=== PATIENT | male | born 1970 | race Caucasian/White ===

== ENCOUNTER → 2018-11-19 07:47 | Outpatient (CLI) | payer OTHER | END | disposition home or self-care (01) | LOC: D.CT 07:47 | PROVIDERS: ATTEND Surgery | DX: R10.13 Epigastric pain (principal); R11.2 Nausea with vomiting, unspecified ==

== ENCOUNTER → 2018-12-18 08:11 | Outpatient (CLI) | payer OTHER | END | disposition home or self-care (01) | LOC: D.NM 08:11 | PROVIDERS: ATTEND Surgery | DX: R10.13 Epigastric pain (principal) ==

== ENCOUNTER 2019-01-08 05:38 | Day surgery (SDC) | payer OTHER ==
[~2019-01-08] VITALS: Ht 172.7 cm; Wt 79.1 kg
[2019-01-08 06:34] VITALS: BP 134/76; Ht 172.7 cm; Wt 79.1 kg
[2019-01-08 06:57] LABS: BASOPHILS 0.7 % (0-2); EOSINOPHILS 5.6 % (0-7); HEMATOCRIT 44.7 % (42.0-54.0); HEMOGLOBIN 15.2 g/dL (13.5-17.5); IMMATURE GRANULOCYTES 0.4 % (0-5); LYMPHOCYTES 24.7 % (15-50); MCH 29.9 pg (26.0-34.0); MCV 87.8 fL (80.0-100.0); MEAN PLATELET VOLUME 9.5 fL (7.4-10.4); NEUTROPHILS 58.6 % (40-80); PLATELET COUNT 255 10x3/uL (130-400); RBC 5.09 10x6/uL (4.20-6.10); RDW 13.1 % (11.5-14.5); WBC 7.3 10x3/uL (4.8-10.8)
[2019-01-08] MEDS ORDERED: OMEPRAZOLE20 M1 PO (08:25)
--- NOTE | 2019-01-08 09:52 | NUR ---
0845-RECD TO ROOM POST EGD AND MANOMETRY 0850-FULL LIQUIDS SERVED 0910-IV D/C, VOIDS AND DRESSED 09-D/C INSTRUCTIONS REVIEWED 924-D/C HOME WITH , AMBULATORY PER REQUEST.
--- NOTE | 2019-01-09 14:40 | OP ---
PATIENT NAME: BETTIE GODWIN MEDICAL RECORD: [id number] :74 LOCATION:D.OPS ADMISSION DATE: SURGEON: ILAN OFRD MD DATE OF OPERATION: 01/08/2019 PREOPERATIVE DIAGNOSES: 1. Epigastric pain. 2. Dysphagia. 3. Cardiac arrhythmia. POSTOPERATIVE DIAGNOSES: 1. Epigastric pain. 2. Dysphagia. 3. Cardiac arrhythmia. PROCEDURES: 1. EGD with biopsy. 2. Esophageal manometry catheter placement. SURGEON: Ilan Ford MD REPORT OF PROCEDURE: An Olympus endoscope was advanced through the mouth and the esophagus and into the stomach. We passed through the stomach into the second portion of the duodenum. There was no sign of any inflammatory changes, ulcerations, or masses. As we pulled back the scope, a biopsy was taken at the antrum of the stomach where was some mild evidence of gastritis. I saw no evidence of masses, polyps, ulcerations throughout the stomach. Retroflexed view showed no sign of a hiatal hernia. As we pulled the scope back, we could see that the GE junction was 38 cm from the teeth. There were some inflammatory changes present at the GE junction consistent with reflux esophagitis. There were some deep ulcerations noted that were friable and having some bleeding from passage of the scope. We took a biopsy of this area. We then removed the insufflation from the stomach. As we pulled back the scope, we saw no evidence of any masses, ulcerations, or strictures of the esophagus. At this point, the scope was completely removed. A manometry probe was then inserted through the naris and down through the esophagus into the stomach. The endoscope was advanced back down through the mouth and esophagus to assure that the probe was in good position and it was noted to be passing through the GE junction. At this point, the scope was removed. COMPLICATIONS: None. CONDITION: Stable. ANESTHESIA: TIVA BLOOD LOSS: Minimal. TRANSINT:[id number] Voice Confirmation ID: [id number] DOCUMENT ID: [id number] OPERATIVE REPORT [id number] TATOBETTIE SOSA ILAN FORD MD at 1440 CC: [id number] DICTATION DATE: 01/08/19 08 SILK WINDING MACHINE OPERATOR: 01/08/19 0946 [facility] 01/08/19 [facility] [address] [place] [address]
== END 2019-01-08 09:25 | disposition home or self-care (01) ==
LOC: D.OPS 05:38
PROVIDERS: Anesthesiology; ATTEND Surgery
DX: K29.70 Gastritis, unspecified, without bleeding (principal); K22.11 Ulcer of esophagus with bleeding; I49.9 Cardiac arrhythmia, unspecified; Z01.812 Encounter for preprocedural laboratory examination

== ENCOUNTER → 2019-07-09 10:44 | Outpatient (CLI) | payer OTHER ==
[2019-01-08 06:34] VITALS: BMI 26.5
[~2019-07-09 10:44] MED LIST: OMEPRAZOLE20 M1 PO
--- NOTE | 2019-07-11 12:59 | EC ---
PATIENT:BETTIE GODWIN DATE OF SERVICE: 07/09/19 SEX: M MEDICAL RECORD: [id number] DATE OF : 74 LOCATION:D.[facility] AGE OF PATIENT: 49 ADMISSION DATE: 07/09/19 REFERRING PHYSICIAN: INTERPRETING PHYSICIAN: EDDY KRAUS MD ECHOCARDIOGRAM REPORT ECHO CHARGES 4 ECHO COMPLETE Date: 07/09/19 CLINICAL DIAGNOSIS: PVC'S H/O HTN/PACEMAKER PLACEMENT ECHOCARDIOGRAPHIC MEASUREMENTS (adult normal given) AC root (d.<3.7cm) 3.8 cm LV Septum d (<1.2 cm> 1.1 cm Valve Excursion 2.5 cm LV Septum (systole) 1.5 cm Left Atria (s.<4.0cm> 4.0 cm LVPW d(<1.2cm) 1.1 cm RV (d.<2.3cm) 2.9 cm LVPW (sytole) 1.4 cm LV diastole(<5.6CM) 6.5 cm MV E-F(>70mm/sec) cm LV systole 4.6 cm LVOT Diameter 2.2 cm MV exc.(>10mm) cm Est.ejection fraction (50-75%) % DOPPLER: LVIT cm/sec A 41.0 cm/sec E 71.0 cm/sec LA cm/sec RVSP 37.0 mmHg LVOT 79.0 cm/sec AOP1/2T m/s Asc. Ao 101 cm/sec RVOT 39.0 cm/sec RA cm/sec PA 67.0 cm/sec AV Gradient Peak 4.1 mmHg AV Mean 2.4 mmHg AV Area 3.3 cm MV Gradient Peak 2.2 mmHg MV Mean 0.79 mmHg MV Area cm COMMENTS: OP - [employer]: 1 [place] Plugger: 3 Dr. Garvin TAPE# PACS Pericardial Effusion N DATE OF SERVICE: Adequate 2-D, Color-Flow, Spectral Doppler, and M-mode No LVH. LV internal dimensions are normal. Wall motion is normal. EF is greater than or equal to 55%. Aortic valve is tricuspid. No evidence of stenosis by Doppler interrogation. Left atrium is normal at 4.0 cm. Mitral valve shows no prolapse. Mild plus MR. Right sided chambers are grossly normal Moderate TR. ECHOCARDIOGRAM REPORT [id number] BETTIE GODWIN TRANSINT:[id number] Voice Confirmation ID: [id number] DOCUMENT ID: [id number] EDDY KRAUS MD at 1259 CC: [id number] DICTATION DATE: 07/10/19 144 VEGETABLE LOADER MACHINE OPERATOR: 07/10/19 2315 DEP CLI 07/09/19 [place] [id number] [place] [id number]
== END | disposition home or self-care (01) ==
LOC: D.HCCECHO 10:44
PROVIDERS: ATTEND Internal Medicine Interventional Cardiology
DX: I08.1 Rheumatic disorders of both mitral and tricuspid valves (principal)

== ENCOUNTER 2020-02-27 15:48 | Inpatient (IN) | payer OTHER ==
[~2020-02-27] VITALS: Ht 172.7 cm; Wt 79.6 kg
--- NOTE | ~2020-02-27 | CN ---
PATIENT NAME:BETTIE GODWIN MEDICAL RECORD: [id number] : 74 LOCATION:[facility] D.2122 ADMIT DATE: 02/27/20 ACCOUNT: [id number] CONSULTING PHYSICIAN: EDDY KRAUS MD REFERRING PHYSICIAN: EDDY SOLITARIO MD DATE OF CONSULTATION: 02/28/2020 HISTORY OF PRESENT ILLNESS: A 49-year-old gentleman with no known history of coronary artery disease, has a history of cardiac arrhythmias in the past, had a permanent pacemaker placed back in 2008 at another facility, admitted with redness, erythema over the pacemaker site. He did have a back injection approximately 3 weeks ago. No dental work. No other procedures. Symptoms became acutely, no systemic symptoms, fever, chills, etc. We are asked to see her concerning her cardiovascular status. PAST MEDICAL HISTORY: Includes; 1. History of cardiac arrhythmia status post pacemaker placement. 2. Gastroesophageal reflux disease. ALLERGIES: None known. MEDICATION: Omeprazole 20 mg p.o. every day. SOCIAL HISTORY: Nonsmoker, nondrinker. Easily takes care of all his ADLs. REVIEW OF SYSTEMS: The patient reports easy bruising but reports no swollen glands. The patient reports no fever, no night sweats, no significant weight gain, no significant weight loss. No significant exercise tolerance. The patient reports no dry eyes, no irritation, no vision change. Patient reports no difficulty hearing and no ear pain. Patient reports no frequent nose bleeds or nose and sinus problems. Patient reports on arm pain on exertion. No shortness of breath while lying down. No history of heart murmur. Patient reports no cough, no wheezing or coughing up blood. Patient reports no abdominal pain, no vomiting. Normal appetite. No diarrhea and not vomiting blood. No nausea and no constipation. Patient reports no incontinence. No difficulty urinating. No hematuria. No increased frequency. Patient reports no muscle aches. No weakness, no arthralgias, no back pain. No swelling of the extremities. Patient reports no abnormal mole, no jaundice, no rashes. Reports no loss of consciousness. No weakness and no numbness. No seizures, dizziness, or headaches. The patient reports no depression, no sleep disturbance, feeling safe in a relationship and no alcohol abuse. Patient reports on fatigue. Reports no runny nose or sinus pressure. No itching, no hives, and no frequent sneezing. PHYSICAL EXAMINATION: GENERAL: Pleasant, in no acute distress. VITAL SIGNS: Blood pressure 103/69, pulse 55 and regular. HEENT: Normocephalic, atraumatic. NECK: No bruits noted. HEART: Regular. LUNGS: Good air excursion. ABDOMEN: Soft, nontender. EXTREMITIES: Pulses are 2+. DIAGNOSTIC DATA: Pacemaker site shows warmth, erythema. Over the pacemaker CONSULT REPORT [id number] BETTIE GODWIN site, there is no streaking. No areas of fluctuance, perhaps mild edema of the right distal digits by his report. IMPRESSION AND PLAN: At this point in time, mullins culture blood. No pocket of fluid on ultrasound, would recheck ultrasound for right subclavian deep vein thrombosis, obviously concern for pacemaker infection, for which the entire device had to be removed at this point. Further recommendations based on clinical course. TRANSINT:[id number] Voice Confirmation ID: [id number] DOCUMENT ID: [id number] EDDY KRAUS MD CC: [id number] DICTATION DATE: 02/28/20844 DOUBLE END PRODUCTION GRINDER: 02/28/20 1652 ADM IN [facility] [address] [place] [address]
[2020-02-27 16:40] LABS: BASOPHILS 0.2 % (0-2); HEMATOCRIT 45.2 % (42.0-54.0); HEMOGLOBIN 15.3 g/dL (13.5-17.5); IMMATURE GRANULOCYTES 0.2 % (0-5); LYMPHOCYTES 18.6 % (15-50); MCHC 33.8 g/dL (31.0-37.0); MCV 88.6 fL (80.0-100.0); MEAN PLATELET VOLUME 9.6 fL (7.4-10.4); MONOCYTES 10.7 % (2-11); NEUTROPHILS 68.3 % (40-80); PLATELET COUNT 256 10x3/uL (130-400); RDW 12.7 % (11.5-14.5); WBC 9.4 10x3/uL (4.8-10.8)
[2020-02-27 16:48] LABS: CALC OSMOLALITY 278 mosm/kg (275-300); CALCIUM 9.3 mg/dL (8.5-10.1); CARBON DIOXIDE 26.2 mmol/L (21.0-32.0); CHLORIDE - SERUM 106 mmol/L (98-107); CREATININE - SERUM 1.1 mg/dL (0.6-1.3); GLUCOSE 90 mg/dL (74-106); POTASSIUM - SERUM 3.7 mmol/L (3.5-5.1); SODIUM 139 mmol/L (136-145); UREA NITROGEN 16 mg/dL (7-18); eGFR NON AFRICAN AMERICAN 76 mL/min (90-120)
[2020-02-27 17:03] LABS: ALKALINE PHOSPHATASE 95 U/L (30-120); ALT (SGPT) 30 U/L (10-68); BILIRUBIN - TOTAL 0.58 mg/dL (0.2-1.3); CKMB 0.7 U/L (0.0-3.6); CREATINE KINASE 92 UL (21-232); PROTEIN - SERUM 7.4 g/dL (6.4-8.2); TROPONIN-I < 0.017 ng/mL (0.000-0.060)
[2020-02-27 18:00] VITALS: BP 128/89
--- NOTE | 2020-02-27 19:50 | NUR ---
INFUSION OF ROCEPHIN COMPLETE AT THIS TIME
[2020-02-27 20:00] VITALS: BP 136/90
[2020-02-27 20:37] LABS: APTT 31.3 SECONDS (22.8-39.4); PROTIME 13.2 SECONDS (11.6-15.0)
[2020-02-28 04:00] VITALS: BP 103/69
[2020-02-28 05:14] VITALS: Ht 172.7 cm; Wt 79.6 kg
[2020-02-28 06:02] LABS: BILIRUBIN NEGATIVE (NEGATIVE); GLUCOSE NEGATIVE (NEGATIVE); KETONE NEGATIVE (NEGATIVE); NITRITE NEGATIVE (NEGATIVE); SPECIFIC GRAVITY 1.015 (1.005-1.020); UROBILINOGEN NORMAL (NORMAL)
[2020-02-28 06:23] LABS: BASOPHILS 0.4 % (0-2); EOSINOPHILS 3.3 % (0-7); HEMATOCRIT 45.3 % (42.0-54.0); HEMOGLOBIN 14.9 g/dL (13.5-17.5); IMMATURE GRANULOCYTES 0.4 % (0-5); LYMPHOCYTES 23.4 % (15-50); MCH 29.5 pg (26.0-34.0); MCHC 32.9 g/dL (31.0-37.0); MCV 89.7 fL (80.0-100.0); MEAN PLATELET VOLUME 9.8 fL (7.4-10.4); MONOCYTES 12.6 % (2-11); NEUTROPHILS 59.9 % (40-80); PLATELET COUNT 264 10x3/uL (130-400); RBC 5.05 10x6/uL (4.20-6.10); RDW 12.9 % (11.5-14.5); WBC 8.1 10x3/uL (4.8-10.8)
[2020-02-28 06:47] LABS: ALBUMIN 3.6 g/dL (3.4-5.0); ALKALINE PHOSPHATASE 98 U/L (30-120); ALT (SGPT) 29 U/L (10-68); BILIRUBIN - TOTAL 0.32 mg/dL (0.2-1.3); CALC OSMOLALITY 283 mosm/kg (275-300); CALCIUM 8.8 mg/dL (8.5-10.1); CARBON DIOXIDE 26.5 mmol/L (21.0-32.0); CHLORIDE - SERUM 107 mmol/L (98-107); GLUCOSE 96 mg/dL (74-106); MAGNESIUM - SERUM 2.2 mg/dL (1.8-2.4); PROTEIN - SERUM 6.5 g/dL (6.4-8.2); SODIUM 142 mmol/L (136-145); UREA NITROGEN 15 mg/dL (7-18); eGFR NON AFRICAN AMERICAN 85 mL/min (90-120)
[2020-02-28 06:50] LABS: POTASSIUM - SERUM 4.4 mmol/L (3.5-5.1)
--- NOTE | 2020-02-28 07:15 | NUR ---
received pt in bed eyes closed resp unlabored skin w/d color wnl REDNESS NOTED TO RT CHEST OVER AREA OF PACEMAKER NAD NOTED
[2020-02-28 10:01] VITALS: BP 125/68
[2020-02-28 15:09] VITALS: BP 145/78
--- NOTE | 2020-02-28 19:45 | NUR ---
REPORT AND INITIAL ROUNDS COMPLETED. PT NOW UP AND WALKING IN THE HALLWAY.
--- NOTE | 2020-02-28 20:30 | NUR ---
IV VANCOMYCIN UP AND INFUSING. PT TEACHING ON MEDICATIONS.
[2020-02-28 20:50] VITALS: BP 128/86
[2020-02-29 00:49] VITALS: BP 116/77
[2020-02-29 05:18] VITALS: BP 103/67
[2020-02-29 08:15] VITALS: BP 113/71
[2020-02-29 08:35] LABS: BASOPHILS 0.5 % (0-2); EOSINOPHILS 3.8 % (0-7); HEMOGLOBIN 15.3 g/dL (13.5-17.5); IMMATURE GRANULOCYTES 0.3 % (0-5); LYMPHOCYTES 22.6 % (15-50); MCH 29.9 pg (26.0-34.0); MCHC 33.3 g/dL (31.0-37.0); MEAN PLATELET VOLUME 9.6 fL (7.4-10.4); MONOCYTES 10.2 % (2-11); NEUTROPHILS 62.6 % (40-80); PLATELET COUNT 252 10x3/uL (130-400); RBC 5.11 10x6/uL (4.20-6.10); RDW 12.9 % (11.5-14.5); WBC 6.6 10x3/uL (4.8-10.8)
--- NOTE | 2020-02-29 08:36 | NUR ---
WAITING ON VAN TROUGH RESULTS TO GIVE VANCOMYCIN.
[2020-02-29 08:39] LABS: ANION GAP 7.8 mmol/L (8-16); CALCIUM 8.7 mg/dL (8.5-10.1); CARBON DIOXIDE 28.2 mmol/L (21.0-32.0); CREATININE - SERUM 1.2 mg/dL (0.6-1.3); MAGNESIUM - SERUM 2.2 mg/dL (1.8-2.4); VANCOMYCIN - TROUGH 10.5 ug/mL (10.0-20.0)
[2020-02-29 11:23] VITALS: BP 132/78
--- NOTE | 2020-02-29 13:31 | NUR ---
PT C/O LT FA IV HURTING. LOOKED AT IV SITE AND IT WAS RED AND TENDER TO TOUCH. D/C IV WITH CATHETER TIP INTACT. NEW 20G IV STARTED TO RT WRIST IV X1 STICK.
[2020-02-29 15:44] VITALS: BP 112/71
--- NOTE | 2020-02-29 19:30 | NUR ---
REPORT AND INITIAL ROUNDS COMPLETED. PT AMBULATORY IN HALLWAY WITH HIS AT BEDSIDE. DENIES PAIN OR DISCOMFORT. IV STIED TO RIGHT WRIST AND SALINE LOCKED. RIGHT CHEST WALL PACEMAKER LESS RED TODAY THAN YESTERDAY. PACED ON TELEMETRY. CPOC.
[2020-02-29 20:00] VITALS: BP 105/74
--- NOTE | 2020-02-29 20:59 | NUR ---
STARTED ROCEPHIN NOW, WILL FOLLOW SHORTLY WITH VANCOMYCIN.
--- NOTE | 2020-03-01 00:29 | NUR ---
ALL ABT COMPLETED FOR THE NIGHT. IV SALINE LOCKED. PT RESTING. CALL LIGHT IN REACH.
[2020-03-01 05:24] LABS: HEMOGLOBIN 14.6 g/dL (13.5-17.5); LYMPHOCYTES 29.2 % (15-50); MCH 29.5 pg (26.0-34.0); MCHC 33.2 g/dL (31.0-37.0); MCV 88.9 fL (80.0-100.0); MEAN PLATELET VOLUME 8.8 fL (7.4-10.4); NEUTROPHILS 58.2 % (40-80); PLATELET COUNT 262 10x3/uL (130-400); RBC 4.95 10x6/uL (4.20-6.10); RDW 12.6 % (11.5-14.5); WBC 6.7 10x3/uL (4.8-10.8)
[2020-03-01 05:49] LABS: ANION GAP 9.3 mmol/L (8-16); CALCIUM 8.8 mg/dL (8.5-10.1); CARBON DIOXIDE 28.3 mmol/L (21.0-32.0); CREATININE - SERUM 1.2 mg/dL (0.6-1.3); MAGNESIUM - SERUM 2.2 mg/dL (1.8-2.4); POTASSIUM - SERUM 4.6 mmol/L (3.5-5.1)
[2020-03-01 08:02] VITALS: BP 111/70
[2020-03-01 11:39] VITALS: BP 115/78
--- NOTE | 2020-03-01 12:59 | NUR ---
PT OUT IN THE HALLWAY WALKING AROUND. DENIES ANY NEEDS.
[2020-03-01] MEDS ORDERED: AUGMENTIN 875-11 TAB PO (13:32)
--- NOTE | 2020-03-01 14:29 | NUR ---
PROVIDED VERBAL AND WRITTEN DISCHARGE TEACHING. PT VERBALIZED UNDERSTANDING REGARDING TEACHING. D/C RT WRIST IV WITH CATHETER TIP INTACT. HEART MONITOR REMOVED AND TAKENT O ADVANCED MANAGER. PT LEFT UNIT VIA AMBULATORY WITH ALL BELONGINGS.
--- NOTE | 2020-03-01 21:43 | MORECARE ---
CASE MANAGEMENT DISCHARGE SUMMARY PATIENT: BETTIE GODWIN UNIT: [id number] ADM DATE: 02/27/20 AGE: 49 : 74 SEX: M ROOM/BED: D.7056 AUTHOR: SUSANNE,DOC PHYSICIAN: REFERRING PHYSICIAN: EDDY SOLITARIO MD DATE OF SERVICE: 03/01/20 Discharge Plan Patient Name: BETTIE GODWIN Facility: [facility]:[place] : 1970 Planned Disposition: Home Anticipated Discharge Date: Discharge Date: 03/01/2020 Expected LOS: Initial Reviewer: [email or web address] Initial Review Date: 02/27/2020 Generated: 03/01/20 10:42 pm Comments DCP- Discharge Planning Updated by [email or web address]: Abbie Steinberg on 03/01/20 8:[address] Patient Name: BETTIE GODWIN Admission Status: Elective Accout number: [id number] Admission Date: 02-27-2020 : 1970 Admission Diagnosis:CELLULITIS, UNSPECIFIED Attending: OSIRIS Current LOS: 3 Anticipated DC Date: Planned Disposition: Home Primary Insurance: [facility] PPO Discharge Planning Comments: CM met with patient to complete initial dc planning assessment. CM educated patient on the CM role and verbal consent given by patient to complete assessment. Patient lives at home with family. Patient is independent. At discharge patient plans to return home and feels this is a safe discharge. CM discussed availability of home health, rehab services, and medical equipment. Patient will have family to transport home. Patient denied known discharge needs at this time. CM will continue to follow and will assist as needed with dc plans/needs. Radio Assembler: Abbie Steinberg DCPIA - Discharge Planning Initial Assessment Updated by [email or web address]: Abbie Steinberg on 03/01/20 9:40 pm * Is the patient Alert and Oriented? Yes * PCP no pcp * Preadmission Environment Home with Family * ADLs Independent * Equipment None * List name and contact numbers for known caregivers / representatives who currently or will assist patient after discharge: JUAREZ GODWIN- [facility]- [phone] * Verbal permission to speak to the caregivers and representatives has been obtained from the patient. Yes * Community resources currently utilized None * Additional services required to return to the preadmission environment? No * Can the patient safely return to the preadmission environment? Yes * Has this patient been hospitalized within the prior 30 days at any hospital? No Patient Name: BETTIE GODWIN Page [id number] at 2143 All edits/amendments must be made on the electronic document DICTATION DATE: 03/01/202141 ARCHITECTURAL ENGINEERING TEACHER: JOSE 03/01/202141 RPT#: [id number] DC DATE:03/01/20 STATUS: DIS IN [facility] [address] [place] [address] END OF REPORT
== END 2020-03-01 14:34 | disposition home or self-care (01) | DRG 603 ==
LOC: D.ER 15:48 → D.M2 19:00
PROVIDERS: Family Medicine; ADMIT Family Medicine; ATTEND Family Medicine
DX: L03.313 Cellulitis of chest wall (principal); K21.9 Gastro-esophageal reflux disease without esophagitis; Z95.0 Presence of cardiac pacemaker